=== PATIENT | female | born 1995 | race American Indian/Alaskan Native ===

== ENCOUNTER 2020-09-10 12:32 | Emergency (ER) | payer OTHER ==
[2020-09-10 13:01] VITALS: BP 146/80
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
--- NOTE | 2020-09-10 15:08 | Cat Scan Report ---
CT head/brain wo con INDICATION / CLINICAL INFORMATION: 24 years Female; headache/dizzy/head injury. TECHNIQUE: Routine CT head without contrast. All CT scans at this location are performed using CT dos e reduction for ALARA by means of automated exposure control. COMPARISON: None. FINDINGS: BRAIN / INTRACRANIAL CONTENTS: The beam hardening degrades the image quality. However, the brain appe ars to demonstrate appropriate attenuation. The ventricular system is within normal limits in size an d configuration. There is no gross CT evidence of acute intracranial hemorrhage or significant mass e ffect. ORBITS: No significant abnormality of visualized orbits. SINUSES / MASTOIDS: No significant abnormality in the visualized paranasal sinuses or mastoid air eugenia ls. CRANIOCERVICAL JUNCTION: No significant abnormality. ADDITIONAL FINDINGS: None. IMPRESSION: 1. There is no clear CT evidence of acute intracranial process. Signer Name: Gonsalo Rojas MD Signed: 09/10/2020 3:03 PM Workstation Name: [id number]
== END 2020-09-10 19:00 | disposition home or self-care (01) ==
LOC: ED 12:32
DX: S09.90XA Unspecified injury of head, initial encounter (principal); R11.10 Vomiting, unspecified; R42 Dizziness and giddiness; Z86.2 Personal history of diseases of the blood and blood-forming organs and certain disorders involving the immune mechanism; Z79.899 Other long term (current) drug therapy; X58.XXXA Exposure to other specified factors, initial encounter; Y93.89 Activity, other specified; Y92.89 Other specified places as the place of occurrence of the external cause; Y99.8 Other external cause status
CPT/HCPCS: 70450; 99283